=== PATIENT | male | born 1995 | race Caucasian/White ===

== ENCOUNTER 2024-10-23 09:57 | Emergency (ER) | payer BC, SELFPAY ==
[2024-10-23 10:37] VITALS: BP 143/88; PULSE 70; RESP 14; TEMP 36.5; O2SAT 99
[2024-10-23 13:06] VITALS: BP 118/77; PULSE 73; RESP 18; O2SAT 96
--- NOTE | 2024-10-23 13:51 | ED_ITS ---
HPI - GI Bleed <Carito Lee PA-C - Last Filed: 10/23/24 13:57> General Chief complaint: GI Bleed Stated complaint: rectal bleeding Time Seen by Provider: 10/23/24 11:33 Source: patient Mode of arrival: Ambulatory History of Present Illness HPI Narrative: 29-year-old male presents to the ED with 3 days of constipation, blood in the stool. Patient states he has had 3 days of constipation, had some bright red blood in the stool twice yesterday. Patient states he had a stool without blood this morning. Patient endorses straining to pass the stool. Patient does endorse a prior history of hemorrhoids. No fever, chills, chest pain, shortness of breath, nausea, vomiting, abdominal pain, lightheadedness, dizziness, syncope. Related Data Home Medications Medication Instructions Recorded Confirmed No Known Home Medications 10/23/24 10/23/24 Allergies Allergy/AdvReac Type Severity Reaction Status Date / Time clindamycin Allergy Severe Rash Verified 10/23/24 10:44 sulfamethoxazole Allergy Severe Rash Verified 10/23/24 10:44 [From ] trimethoprim [From ] Allergy Severe Rash Verified 10/23/24 10:44 Review of Systems <Carito Lee PA-C - Last Filed: 10/23/24 13:57> Constitutional Constitutional: Denies chills, Denies fatigue, Denies fever(s), Denies frequent falls, Denies lethargy and Denies weakness Eyes Eyes: Denies change in vision, Denies eye discharge, Denies irritation and Denies loss of vision ENT Ears, Nose, Mouth, and Throat: Denies change in voice, Denies dizziness, Denies neck pain, Denies sore throat and Denies throat swelling Cardiovascular Cardiovascular: Denies chest pain, Denies irregular heart rhythm, Denies lightheadedness, Denies palpitations, Denies dyspnea, Denies dyspnea on exertion and Denies orthopnea Respiratory Respiratory: Denies cough, Denies dyspnea, Denies dyspnea on exertion and Denies wheezing Gastrointestinal Gastrointestinal: Denies abdominal pain, Reports hematochezia, Denies change in bowel habits, Reports constipation, Denies diarrhea, Denies nausea and Denies vomiting Musculoskeletal Musculoskeletal: Denies neck pain and Denies numbness Integumentary/Breasts Skin/Breast: Denies pruritus, Denies erythema, Denies rash and Denies wounds Neurologic Neurologic: Denies behavioral changes, Denies confusion, Denies dizziness, Denies frequent falls, Denies loss of vision, Denies numbness and Denies weakness Psychiatric Psychiatric: Denies anxiety, Denies behavioral changes, Denies confusion, Denies depression, Denies homicidal ideation and Denies suicidal ideation Endocrine Endocrine: Denies fatigue, Denies flushing and Denies palpitations Hematologic/Lymphatic Hematologic/Lymphatic: Denies easy bruising Allergic/Immunologic Allergic/Immunologic: Denies urticaria, Denies throat swelling and Denies wheezing Patient History <Carito Lee PA-C - Last Filed: 10/23/24 13:57> Social History Smoking Status: Never smoker Smoking Status: Never smoker Exam <Carito Lee PA-C - Last Filed: 10/23/24 13:57> Narrative Exam Narrative: Const General:?cooperative, healthy appearing and comfortable [facility] Head:?normal to inspection Ears:?hearing grossly normal bilaterally Nose:?external nose normal Face and sinus:?normal facial exam and sinuses nontender Mouth:?oral mucosae normal Throat:?posterior oropharynx normal Eyes General:?appearance normal, both eyes and all related structures Neck Neck:?normal visual inspection and no lymphadenopathy noted Resp Effort & Inspection:?normal respiratory effort Auscultation:?clear to auscultation bilaterally Cardio Rate:?regular rate Rhythm:?regular rhythm Neuro General:?patient alert, patient awake and patient oriented x3 Initial Vital Signs Initial Vital Signs: Vital Signs Temperature 97.7 F 10/23/24 10:37 Pulse Rate 70 10/23/24 10:37 Respiratory Rate 14 10/23/24 10:37 Blood Pressure 143/88 H 10/23/24 10:37 Pulse Oximetry 99 10/23/24 10:37 Oxygen Delivery Method Room Air 10/23/24 10:37 <Kt Silverio MD - Last Filed: 10/23/24 22:29> Initial Vital Signs Initial Vital Signs: Vital Signs Temperature 97.7 F 10/23/24 10:37 Pulse Rate 70 10/23/24 10:37 Respiratory Rate 14 10/23/24 10:37 Blood Pressure 143/88 H 10/23/24 10:37 Pulse Oximetry 99 10/23/24 10:37 Oxygen Delivery Method Room Air 10/23/24 10:37 Course <Carito Lee PA-C - Last Filed: 10/23/24 13:57> Vital Signs Vital signs: Vital Signs - 8 hr 10/23/24 10:37 10/23/24 13:06 Temperature 97.7 F Pulse Rate 70 73 Respiratory Rate 14 18 Blood Pressure 143/88 H 118/77 Pulse Oximetry 99 96 Oxygen Delivery Method Room Air Room Air <Kt Silverio MD - Last Filed: 10/23/24 22:29> Vital Signs Vital signs: Vital Signs - 8 hr 10/23/24 10:37 10/23/24 13:06 Temperature 97.7 F Pulse Rate 70 73 Respiratory Rate 14 18 Blood Pressure 143/88 H 118/77 Pulse Oximetry 99 96 Oxygen Delivery Method Room Air Room Air MDM - GI Bleed <Carito Lee PA-C - Last Filed: 10/23/24 13:57> MDM Narrative Medical decision making narrative: 29-year-old male presents to the ED with 3 days of constipation, blood in the stool. Patient's symptoms are most consistent with constipation contributing to hemorrhoids. Counseled patient on constipation and hemorrhoids. . Recommend stool softener, Metamucil, increased water intake. Recommend Sitz baths. Recommend follow-up with PCP as soon as possible. ED return precautions were discussed with patient. Patient verbalized understanding. Medical records reviewed: Yes Discharge Plan Departure Patient Disposition: Home Clinical Impression: Hemorrhoids Qualifiers: Hemorrhoid type: unspecified Qualified Code(s): K64.9 - Unspecified hemorrhoids Instructions: DI for Hemorrhoids Activity Restrictions/Additional Instructions: You were evaluated in the ED today for blood in the stool. Your symptoms are are likely due to hemorrhoids, constipation. It is important to avoid the constipation in order to prevent the hemorrhoids from flaring up. You may take a stool softener, fiber laxative such as Metamucil, drink plenty of water in order to pass the stool without straining. It is the straining that exacerbates your hemorrhoids and causes the bleeding. You may also do Sitz baths 3 times a day or after each bowel movement. Please follow-up with your PCP as soon as possible. Return to the ED if you have worsening symptoms. Prescriptions: No Action No Known Home Medications Stand Alone Forms: Patient Portal/API/Survey ED Sign-out <Kt Silverio MD - Last Filed: 10/23/24 22:29> Cosign ED Attending Cosignature Attestation: I was immediately available in the department for consultation. This documentation has been reviewed and I agree with assessment and plan. Supervised by Kt Silverio MD
== END 2024-10-23 13:07 | disposition home or self-care (01) ==
PROVIDERS: Emergency Provider Student in an Organized Health Care Education/Training Program
DX: K64.9 Unspecified hemorrhoids (principal); K59.00 Constipation, unspecified
CPT/HCPCS: 99281

== ENCOUNTER → 2025-09-10 07:47 | Outpatient (CLI) | payer OTHER, SELFPAY | PROVIDERS: Referring Provider Nurse Practitioner Family; Visit Provider Nurse Practitioner Family | DX: R30.0 Dysuria (principal) | CPT/HCPCS: 87086 ==